=== PATIENT | female | born 1995 | race Asian ===

== ENCOUNTER 2018-07-05 12:06 | Emergency (ER) | payer OTHER ==
[~2018-07-05] VITALS: Ht 162.6 cm; Wt 71.2 kg
[2018-07-05 12:12] VITALS: Ht 162.6 cm; Wt 71.2 kg
[2018-07-05 13:26] VITALS: BP 126/85
== END 2018-07-05 13:26 | disposition home or self-care (01) ==
LOC: ED 12:06
DX: S16.1XXA Strain of muscle, fascia and tendon at neck level, initial encounter (principal); S39.012A Strain of muscle, fascia and tendon of lower back, initial encounter; V43.12XA Car passenger injured in collision with other type car in nontraffic accident, initial encounter; Y93.89 Activity, other specified; Y92.413 State road as the place of occurrence of the external cause; Y99.8 Other external cause status
CPT/HCPCS: J1885

== ENCOUNTER 2018-10-14 19:16 | Inpatient (IN) | payer OTHER ==
[~2018-10-14] VITALS: Ht 162.6 cm; Wt 70.3 kg
[2018-10-14 19:39] VITALS: Ht 162.6 cm; Wt 70.3 kg
[2018-10-14 20:08] LABS: BASOPHIL % 0.8 % (0-2); PLATELET COUNT 307 x10^3mcL (130-400); RED CELL DISTRIBUTION WIDTH 13.3 % (11.5-14.5)
[2018-10-14 20:15] LABS: CARBON DIOXIDE 25.9 mmol/L (21-32); CHLORIDE SERUM 104 mmol/L (98-107); CREATININE SERUM 0.8 mg/dL (0.6-1.0); GFR1 > 60 mL/min; GLUCOSE SERUM 83 mg/dL (74-106); POTASSIUM SERUM 3.7 mmol/L (3.5-5.1); SODIUM SERUM 143 mmol/L (136-145)
[2018-10-14 20:20] LABS: ALBUMIN 3.8 g/dL (3.4-5.0); ALKALINE PHOSPHATASE 44 U/L (46-116); ALT/SGPT 21 U/L (14-59); AST/SGOT 12 U/L (15-37); BILIRUBIN TOTAL 0.39 mg/dL (0.20-1.00); LIPASE 100 IU/L (73-393); TOTAL PROTEIN, SERUM 8.1 g/dL (6.4-8.2)
--- NOTE | 2018-10-14 20:53 | NUR ---
PT AMBULATED TO BED 14 WITH SLOW BUT STEADY GAIT, PT HUNCHED OVER. PT REPORTS L LOWER BACK AND BLQ PAIN X 2 DAYS. PT REPORTS BURNING AND PAIN ON URINATION. PT DENIES N/V, DIZZINESS OR PAIN ON PALPATION.
--- NOTE | 2018-10-14 21:19 | NUR ---
PT TAKEN TO ULTRASOUND VIA WHEELCHAIR.
--- NOTE | 2018-10-14 22:10 | NUR ---
PT SITTING UP IN BED, MORPHINE IV ADMINSITERED PER ORDER. PT REPORTS PAIN HAS DECREASED AND RATES PAIN 2/10.
--- NOTE | 2018-10-14 22:23 | NUR ---
PT CALLED FROM ROOM STATING SHE IS HAVING SUDDEN PAIN TO LEFT FLANK. MADE AWARE.
--- NOTE | 2018-10-14 22:31 | NUR ---
PT MEDICATED PER ORDER. SEE EMAR. PT STATES TO RETURN OF SEVERE PAIN TO SAME LEFT FLANK AT PRIOR TO MEDICATION ADMINISTERATION.PT A&OX4,CRYING IN ROOM WITH SIG OTHER AT BEDSIDE,RATING PAIN 8/10. WILL NOTIFY PRIMARY RN EDITH OF PT CHANGE IN CONDITION.
--- NOTE | 2018-10-14 23:17 | NUR ---
PT LAYING IN BED GRIMACING IN PAIN. PT MEDICATED WITH IV MORPHINE, PT REPORTS PAIN HAS DECREASED TO A 5/10.
[2018-10-15] MEDS ORDERED: AVIANE1 TAB (00:42)
--- NOTE | 2018-10-15 00:46 | NUR ---
PT BACK FROM CT, WITH OUT INCIDENT. PT REPORTS L LOWER BACK PAIN RATED 7/10. PT HUNCHED OVER IN BED AND GRIMACING IN PAIN. KETAMINE IV STARTED PER DR SUSHMA GOYAL.
--- NOTE | 2018-10-15 02:27 | NUR ---
REPORTS GIVEN TO BROWN RIOS.
[2018-10-15 02:33] LABS: UA SPECIFIC GRAVITY >=1.030 (1.005-1.035); microscopic required? YES; urine erythrocyte 3+ (NEGATIVE)
[2018-10-15 03:11] VITALS: BP 124/65
--- NOTE | 2018-10-15 03:29 | NUR ---
Admitted this 23y/o female from ED via [facility]. ALert and oriented. No respiratory distress noted on room air. C/o left flank pain and nausea, medicated as ordered for both. Ambulatory. Admission assessment done. No skin breakdown. Boyfriend at the bedside. Will cont.to monitor. Call light within reach.
[2018-10-15 05:38] VITALS: BP 105/58
--- NOTE | 2018-10-15 07:40 | NUR ---
RECEIVED PT FROM [employer] ARCHITECT RN. Harman/BLANCA. MED SURG. DENIES CHEST PAIN/PRESSURE. RESPIRATIONS EQUAL AND UNLABORED ON RA. DENIES SOB AT THIS TIME. PT DENIES ANY N/V AT THIS TIME. PT STATES PAIN IS INTERMITTEN TO LLQ RADIATING TO BACK BUT IS TOLERABLE. IV PATENT AND INFUSING TO LAC. NO REDNESS OR SWELLING NOTED. FAMILY AT BEDSIDE. WILL CONTINUE TO MONITOR. CALL LIGHT IN REACH. BED IN LOWEST POSITION.
[2018-10-15 09:10] VITALS: BP 100/73
--- NOTE | 2018-10-15 09:56 | NUR ---
PT SITTING UP IN BED RESTING. NO ACUTE RESP DISTRESS NOTED ON RA. PT STATES PAIN IS INTERMITTENT TO LLQ RADIATING TO LT BACK. PT STATES PAIN IS TOLERABLE NOW. GIVEN PO MEDS. TOLERATED WELL. IV PATENT AND INFUSING. NO REDNESS OR SWELLING NOTED. WILL CONTINUE TO MONITOR. CALL LIGHT IN REACH. BED IN LOWEST POSITION.
--- NOTE | 2018-10-15 14:04 | NUR ---
PT IN BED RESTING. NO ACUTE RESP DISTRESS NOTED ON RA. PT STATES PAIN IS ABOUT A 6/10 TO LT SIDE AND BACK. MEDICATED PER EMAR. WILL CONTINUE TO MONITOR. CALL LIGHT IN REACH. BED IN LOWEST POSITION.
--- NOTE | 2018-10-15 15:12 | NUR ---
PT IN BED RESTING. NO ACUTE RESP DISTRESS NOTED ON RA. PT STATES PAIN IS TOLERABLE SINCE RECEIVING NORCO. IV PATENT AND INFUSING TO LAC. NO REDNESS OR SWELLING NOTED. WILL CONTINUE TO MONITOR. CALL LIGHT IN REACH. BED IN LOWEST POSITION.
[2018-10-15 16:09] VITALS: BP 93/37
--- NOTE | 2018-10-15 16:57 | NUR ---
PT SITTING UP IN BED. NO ACUTE RESP DISTRESS NOTED ON RA. PT STATES PAIN IS TOLERABLE. PT STATES SHE WANTS TO SHOWER AND IF SHE FEELS OKAY AFTER SHOWERING SHE WANTS TO GO HOME . DR. SALOMON MADE AWARE. PER DR. SALOMON SHES GOING TO SPEAK WITH PT. WILL CONTINUE TO MONITOR. CALL LIGHT IN REACH. BED IN LOWEST POSITION.
[2018-10-15] MEDS ORDERED: FLO4 PO (17:44)
[2018-10-15] MEDS ORDERED: CIPRO500 MG PO (17:45)
[2018-10-15] MEDS ORDERED: NORCO1 TA2 PO (17:45)
[2018-10-15 18:03] VITALS: BP 109/72; BP 93/37
--- NOTE | 2018-10-15 18:22 | NUR ---
PT SITTING UP IN BED. GIVEN DISCHARGE INSTRUCTIONS. PT INSTRUCTED TO COME BACK TO ER OR CALL PCP IF ANY WORSENING SYMPTOMS OF FEVER, SOB. PT VERBALIZED UNDERSTANDING. PT GIVEN PRESCRIPTIONS AND INSTRUCTED ON WHEN TO TAKE. PT VERBALIZED UNDERSTANDING. PT GIVEN HAT AND URINE STRAINER TO TAKE HOME. ALL QUESTIONS AND CONCERNS ADDRESSED. IV TO LAC REMOVED CATHETER INTACT. NO REDNESS OR SWELLING NOTED. PT GETTING DRESS. WILL CALL WHEN READY.
== END 2018-10-15 18:40 | disposition home or self-care (01) | DRG 465 ==
LOC: ED 19:16 → MU 10-15 01:26
PROVIDERS: ADMIT General Practice
DX: N13.2 Hydronephrosis with renal and ureteral calculous obstruction (principal)
CPT/HCPCS: J1885; J2270; J2405; J3490; J7030; Q9967